=== PATIENT | female | born 1990 | race Caucasian/White ===

== ENCOUNTER 2017-11-21 18:48 | Emergency (ER) | payer OTHER ==
[2017-11-21] MEDS ORDERED: Triamcinolone Acetonide 40 MG/ML 1 ML MDV IM ONE (19:24)
--- NOTE | 2017-11-21 19:39 | EDM.PDOC ---
ED HPI GENERAL MEDICAL PROBLEM - General Chief Complaint: Respiratory Problem Stated Complaint: CHEST TIGHTNESS, CONGESTION, DIFF BREATHING Time Seen by Provider: 11/21/17 19:03 - History of Present Illness INITIAL COMMENTS - FREE TEXT/NARRATIVE: Ariel is a 27 year old female who presents to the ED with worsening cold symptoms. She reports she has had nasal congestion for the past few days. She reports she started a new job at the [employer] today and was around a lot of dust. She reports that about 2-3 hours ago she became more short of breath and started coughing. She reports a dry nonproductive cough. Denies any fever or chills. Reports she has been sneezing lots. She reports she called the [facility] ask a nurse and they recommended she come to the ED to be evaluated. She reports that at the time of ED presentation she is feeling better. Is no longer short of breath. Denies any other complaints. Does report she normally sees Dr. Leesa Cervantes at the [facility]. She is wondering if there is a shot or something that can help her allergies. She does report she currently takes Osiris daily in the am and Benadryl at night. She reports she was started on Flonase, but she has not received this in the mail. Onset Date: 11/18/17 Duration: Getting Worse Associated Symptoms: Reports: Cough, Shortness of Breath. Denies: Confusion, Chest Pain, cough w sputum, Diaphoresis, Fever/Chills, Headaches, Loss of Appetite, Malaise, Nausea/Vomiting, Rash, Seizure, Syncope, Weakness Middle Chest Pain Score (Numeric/FACES): 4 - Related Data Allergies Allergy/AdvReac Type Severity Reaction Status Date / Time ciprofloxacin [From Cipro] Allergy Other Verified 11/21/17 18:52 codeine Allergy Vomiting Verified 11/21/17 18:52 Home Meds: Home Meds Albuterol Sulfate [Proair Hfa] 8.5 gm IH Q4H PRN #1 hfa.aer.ad 11/21/17 [Rx] FLUoxetine HCl [Prozac] 60 mg PO BEDTIME 11/21/17 [History] Fexofenadine [Osiris] 60 mg PO DAILY PRN 11/21/17 [History] Past Medical History HEENT History: Reports: Allergic Rhinitis Psychiatric History: Reports: Depression - Past Surgical History HEENT Surgical History: Reports: Tonsillectomy GI Surgical History: Reports: Appendectomy Social & Family History - Family History Family Medical History: Noncontributory - Tobacco Use Smoking Status *Q: Never Smoker - Caffeine Use Caffeine Use: Reports: Coffee - Recreational Drug Use Recreational Drug Use: No ED ROS GENERAL - Review of Systems Review Of Systems: ROS reveals no pertinent complaints other than HPI. ED EXAM, GENERAL - Physical Exam Exam: See Below Exam Limited By: No Limitations General Appearance: Alert, WD/WN, No Apparent Distress Eye Exam: Bilateral Eye: EOMI, Normal Fundi, Normal Inspection, PERRL Ears: Normal External Exam, Normal Canal, Hearing Grossly Normal, Normal TMs Nose: Nasal Swelling, Nasal Drainage, Clear Rhinorrhea Throat/Mouth: Normal Inspection, Normal Lips, Normal Teeth, Normal Gums, Normal Oropharynx, Normal Voice, No Airway Compromise Head: Atraumatic, Normocephalic Neck: Normal Inspection, Supple, Non-Tender, Full Range of Motion Respiratory/Chest: No Respiratory Distress, Lungs Clear, Normal Breath Sounds, No Accessory Muscle Use, Chest Non-Tender Cardiovascular: Normal Peripheral Pulses, Regular Rate, Rhythm, No Edema, No Gallop, No JVD, No Murmur, No Rub Neurological: Alert, Oriented, CN II-XII Intact, Normal Cognition, Normal Gait, Normal Reflexes, No Motor/Sensory Deficits Psychiatric: Normal Affect, Normal Mood Skin Exam: Warm, Dry, Intact, Normal Color, No Rash Lymphatic: No Adenopathy Course - Vital Signs Last Recorded V/S: Last Vital Signs Temp 98.7 F 11/21/17 18:49 Pulse 79 11/21/17 18:49 Resp 20 11/21/17 18:49 BP 124/78 11/21/17 18:49 Pulse Ox 99 11/21/17 18:49 - Orders/Labs/Meds Meds: Medications Discontinued Medications Generic Name Dose Route Start Last Admin Trade Name Yanely PRN Reason Stop Dose Admin Triamcinolone Acetonide 80 mg 11/21/17 19:24 11/21/17 19:31 Kenalog-40 IM 11/21/17 19:25 80 mg ONETIME ONE Administration Departure - Departure Time of Disposition: 19:34 Disposition: Home, Self-Care 01 Condition: Good Clinical Impression: Allergic reaction to inhaled dust Allergic rhinitis Qualifiers: Allergic rhinitis trigger: unspecified Allergic rhinitis seasonality: unspecified Qualified Code(s): J30.9 - Allergic rhinitis, unspecified - Discharge Information *PRESCRIPTION DRUG MONITORING PROGRAM REVIEWED*: Not Applicable *COPY OF PRESCRIPTION DRUG MONITORING REPORT IN PATIENT MARYJO: Not Applicable Prescriptions: Albuterol Sulfate [Proair Hfa] 8.5 gm IH Q4H PRN #1 hfa.aer.ad PRN Reason: Shortness Of Breath Instructions: Nasal Allergies, [id number], Allergies, Adult Referrals: Danni Cervantes MD [Ordering Only Provider] - Additional Instructions: Continue Osiris daily Benadryl as needed at bedtime Flonase twice daily ProAir inhaler as needed for shortness of breath. This was sent to [facility] in [place]. Recommend follow up with PCP in clinic for further workup and treatment Return to ED for any emergent needs
== END 2017-11-21 19:42 | disposition home or self-care (01) ==
LOC: CC.ED 18:48
DX: J30.9 Allergic rhinitis, unspecified (principal)
CPT/HCPCS: 96372; 99283; J3301